=== PATIENT | male | born 1995 | race Caucasian/White ===

== ENCOUNTER 2022-12-09 15:38 | Emergency (ER) | payer OTHER ==
[~2022-12-09] VITALS: Ht 188 cm; Wt 108.1 kg
[2022-12-09] MEDS ORDERED: IBUP200C25 PO (15:45)
[2022-12-09 17:42] LABS: GC DNA AMPLIFICATION NEGATIVE (NEGATIVE)
[2022-12-09] MEDS ORDERED: IBUP-1022 PO (18:40)
[2022-12-09 18:51] VITALS: BP 135/71
== END 2022-12-09 18:56 | disposition home or self-care (01) ==
LOC: M ED 15:38
DX: N50.811 Right testicular pain (principal); H53.40 Unspecified visual field defects